=== PATIENT | male | born 1955 | race African-American/Black ===

== ENCOUNTER 2017-05-05 06:08 | Outpatient (CLI) | payer BC ==
[~2017-05-05] VITALS: Ht 182.9 cm; Wt 102.3 kg
--- NOTE | ~2017-05-05 | HEMODYNAMI ---
PATIENT:MARIAM FREEMAN MEDICAL RECORD: [id number] : 55 LOCATION:[facility] ADMISSION DATE: 05/05/17 Generatedon:05/05/201710:24 Patient name: MARIAM FREEMAN Patient #: [id number] SSN: : 1955 Date of study: 05/05/2017 Page: Of Hemodynamic Procedure Report Patient Data Patient Demographics Procedure consent was obtained First Name: MARIAM Gender: Male Last Name: LYDIA : 1955 Patient #: [id number] Age: 61 year(s) Race: Black Additional ID: [id number] Contact details Address: [address] [place] [address] State: [place] City: [place] Zip code: [address] Admission Admission Data Admission Date: 05/05/2017 Admission Time: 6:08 Procedure Procedure Types Cath Procedure Peripheral Cath Diagnostic Procedure Miscellaneous Procedure Description Procedure Date Procedure Date: 05/05/2017 Procedure Start Time: 9:05 Procedure Staff Name Function Chris Miner MD Performing Physician Deidra Pimentel RT Scrub Hayley Molina RN Nurse Shant Jc RT Monitor Procedure Data Cath Procedure Fluoroscopy Diagnostic fluoroscopy Total fluoroscopy Time: 24 time: 24 min min Diagnostic fluoroscopy Total fluoroscopy dose: 278 dose: 278 mGy mGy Contrast Material Contrast Material Type Amount (ml) Isovue 300 91 Entry Location Entry Primary Successful Side Size Upsize 1 Upsize Entry Closure Alfonso ccessful Closure Location (Fr) (Fr) 2 (Fr) Remarks Device Remarks Femoral Right 5 Fr 6 Fr Exoseal artery Mid-Length Diagnostic catheters Device Type Used For End Catheter Placement Merit ULTRA BOLUS FLUSH 5Fr 65CM catheter Procedure Medications Medication Administration Route Dosage Heparin Bolus I.V. 5000 units Fentanyl I.V. 100 mcg Hemodynamics Rest Heart Rate: 60 (bpm) Snapshots Pre Cath Intra NCS Post Cath Vital Signs Time Heart Resp SPO2 NIBP (mmHg) Rhythm Pain Sedation Rate (ipm) (%) Status Level (bpm) 8:46:03 70 21 100 175/83(138) NSR 0 (11) 10(A) , No pain 8:50:27 68 22 100 159/85(132) NSR 0 (11) 10(A) , No pain 8:54:51 63 20 100 161/84(127) NSR 0 (11) 10(A) , No pain 8:59:17 64 21 100 160/83(139) NSR 0 (11) 10(A) , No pain 9:03:44 64 22 100 166/78(127) NSR 0 (11) 10(A) , No pain 9:08:10 69 27 100 163/82(136) NSR 0 (11) 10(A) , No pain 9:12:32 74 21 100 160/84(124) NSR 0 (11) 10(A) , No pain 9:16:59 66 24 100 157/83(135) NSR 0 (11) 10(A) , No pain 9:21:23 69 18 100 160/87(140) NSR 0 (11) 10(A) , No pain 9:25:49 69 22 100 155/79(132) NSR 0 (11) 10(A) , No pain 9:30:13 71 22 100 163/81(127) NSR 0 (11) 10(A) , No pain 9:34:35 68 21 100 160/88(138) NSR 0 (11) 10(A) , No pain 9:39:00 68 21 100 167/84(131) NSR 0 (11) 10(A) , No pain 9:43:28 69 21 100 171/84(137) NSR 0 (11) 10(A) , No pain 9:47:56 73 22 100 168/81(135) NSR 0 (11) 10(A) , No pain 9:52:25 70 22 100 163/84(128) NSR 0 (11) 10(A) , No pain 9:56:49 70 20 100 170/89(135) NSR 0 (11) 10(A) , No pain 10:01:17 66 21 100 173/85(131) NSR 0 (11) 10(A) , No pain 10:05:41 65 15 100 172/87(123) NSR 0 (11) 10(A) , No pain 10:10:02 72 20 99 162/91(133) NSR 0 (11) 10(A) , No pain 10:14:24 72 17 100 168/87(140) NSR 0 (11) 10(A) , No pain 10:18:48 72 18 99 163/88(128) NSR 0 (11) 10(A) , No pain 10:23:12 82 21 100 171/96(135) NSR 0 (11) 10(A) , No pain Medications Time Medication Route Dose Verified Delivered Reason Notes Effe ctiveness by by 9:29:45 Heparin I.V. 5000 Hayley Hayley for Bolus units Tracy Molina anticoagulation RN RN 10:13:52 Fentanyl I.V. 100 Hayley Hayley mcg Tracy Molina RN strip polisher Log Time Note 8:30:00 Time tracking: Regular hours 8:30:15 Plan of Care:Hemodynamics will remain stable., Cardiac rhythm will remain stable., Comfort level will be maintained., Respiratory function will remain adequate., Patient/ family verbilizes understanding of procedure., Procedure tolerated without complication., Recovers from procedure without complications.. 8:30:23 Patient received from Outpatients to IR Alert and oriented. Tansferred to table in Supine position. 8:30:24 Correct patient and procedure confirmed by team. 8:30:27 Signed procedure consent form obtained from patient. 8:30:28 ECG and BP/O2 sat monitors applied to patient. 8:30:31 Full Disclosure recording started 8:30:32 - 8:30:41 H&P Date Dictated: 05/05/2017 H&P Addendum completed by physician on day of procedure. (MUST COMPLETE FOR ALL OUTPATIENTS). 8:30:42 Pre-procedure instructions explained to patient. 8:30:43 Pre-op teaching completed and patient verbalized understanding. 8:30:51 Family in waiting room. 8:30:53 Patient NPO since Midnight. 8:30:57 Is the patient allergic to Iodine/contrast media? No. 8:31:04 Is patient on blood thinner?Yes 8:31:13 Patient diabetic? Yes. 8:31:16 If diabetic: On Metformin? Yes 8:31:27 If on Metformin: Last Dose? 05/03/2017 8:31:31 - 8:31:32 ----Pre-sedation anethsthesia assessment.---- 8:31:39 Previous problem with sedation/anesthesia? No ? 8:31:41 Snore? Yes 8:31:43 Sleep apnea? No 8:31:44 Deviated septum? No 8:31:45 Opens mouth fully? Yes 8:31:46 Sticks out tongue? Yes 8:31:49 Airway obstruction? No ? 8:32:13 Dentures? No ? 8:32:18 Pre procedure: right dorsailis pedis pulse Doppler 8:32:23 Pre procedure: left dorsailis pedis pulse Inaccessible 8:32:26 Pre procedure: right posterior tibial pulse Doppler 8:32:29 Pre procedure: left posterior tibial pulse Inaccessible 8:32:37 Patient pain scale 0/10 no pain. 8:32:51 Use device set IR Diagnostic 8:32:54 Acist Syringe opened to sterile field. 8:32:54 Acist Hand Control opened to sterile field. 8:32:55 Acist Manifold opened to sterile field. 8:32:55 Bag Decanter opened to sterile field. 8:32:56 Sterile Angiographic Pack opened to sterile field. 8:44:33 IV patent on arrival in left wrist with 0.9% NaCl at [facility]. 8:44:34 Sharps counted by scrub and verified by R.N. 8:44:34 Alarms reviewed by R. N. 8:44:38 Bilateral groins area was prepped with chlora-prep and draped in steril e fashion 8:44:42 Vital chart was started 8:44:43 Baseline sample Acquired. 8:44:45 Rhythm: sinus rhythm 9:03:09 Physician arrived 9:03:10 --------ALL STOP TIME OUT------ 9:03:10 Final Timeout: patient, procedure, and site verified with staff and physician. All members of the team are in agreement. 9:03:12 Bilateral groins site verified by team. 9:03:16 Physical assessment completed. ASA score P 3- A patient with mild systemic disease as per Chris Miner MD. 9:03:21 Sedation plan: IV Moderate Sedation Versed, Fentanyl 9:05:03 Procedure started. 9:05:33 Local anesthetic to left femerol artery with Lidocaine 1% by Chris Miner MD.INITIAL ACCESS ONLY 9:05:43 A 5 Fr sheath was inserted into the Right Femoral artery 9:05:48 Terumo 5Fr [place] Sheath opened to sterile field. 9:05:49 Micropuncture VSI 4FR kit opened to sterile field. 9:05:50 TUBING, CONTRAST INJCTN HI PRES opened to sterile field. 9:05:51 Cook DOC .035 guide wire opened to sterile field. 9:05:51 SMT [employer] SAN 260 guide wire opened to sterile field. 9:06:05 BasixTOUCH Inflation Syringe opened to sterile field. 9:06:08 A [place] ULTRA BOLUS FLUSH 5Fr 65CM catheter was advanced over the wire and used for . 9:13:18 Terumo ANGLE 260cm glide wire opened to sterile field. 9:13:26 Terumo TORQUE DEVICE PLASTIC .038 opened to sterile field. 9:13:42 Terumo 5FR ANGLED 65CM glide catheter opened to sterile field. 9:19:07 Sheath upsized to a 6 Fr Mid-Length. 9:19:19 Terumo 6Fr [place] Destination Sheath opened to sterile field. 9:22:01 CXI SUPPORT .035 135 CM STR catheter opened to sterile field. 9:27:04 BasixTOUCH Inflation Syringe opened to sterile field. 9:29:45 Heparin Bolus 5000 units I.V. was administered by Hayley Molina RN; for anticoagulation; 9:32:12 [address] 260 .035 glide wire opened to sterile field. 9:39:55 Trailblazer 0.035 catheter opened to sterile field. 9:55:53 Procedure and supply charges have been captured, reviewed, submitted an d are correct. 10:09:19 Terumo 6Fr [place] Sheath opened to sterile field. 10:09:42 Cordis 6Fr Exoseal opened to sterile field. 10:10:00 Sheath removed intact; hemostasis achieved with Exoseal to the Right Femoral artery. 10:10:02 Procedure ended.(Physican Out) 10:11:08 Fluoroscopy time 24.00 minutes. 10:11:13 Flurop Dose total: 278 10:11:13 Fluoroscopy dose: 278 mGy 10:11:23 Contrast amount:Isovue 300 91ml. 10:11:25 Sharps counted by scrub and verified by R.N. 10:11:26 Insertion/operative site no bleeding no hematoma. 10:11:31 Post-op/insertion site Left Femoral artery dressed using a 4 x 4 and Tegaderm. 10:11:36 Post left femerol artery:stable 10:11:39 Post Procedure Pulses reassessed and unchanged 10:12:10 Post-procedure physical assessment completed. ASA score P 3 - A patient with severe systemic disease as per Chris Miner MD. 10:13:51 Post procedure instruction explained to patient.Patient verbalizes understanding. 10:13:52 Fentanyl 100 mcg I.V. was administered by Hayley Molina RN; ; 10:22:56 Report given to Outpatients. 10:22:59 Patient transfered to Outpatients with Bed. 10:24:04 Vital chart was stopped Device Usage Item Name Manufacture Quantity Catalog Number Hospital Part Current Min imal Lot# / Charge Number Stock Stock Serial# Code Acist Syringe Acist 1 28827 276781 284121 169450 20 [employer] Inc Acist Hand Acist 1 93483 100850 120534 160150 5 Control Medical Systems Inc Acist Acist 1 14791 014858 637340 808124 5 Manifold Medical Systems Inc Bag Decanter Microtek 1 2002S 403262 46295 536207 5 Medical Inc. Sterile Cardinal 1 [id number] 601552 399041 5 Angiographic Health Pack Terumo 5Fr Terumo 1 [id number] 089773 606793 940657 40 [place] Sheath Micropuncture VSI VASCULAR 1 7266V 585781 780242 5 VSI 4FR kit SOLUTIONS TUBING, Merit 1 [id number] 686267 564609 426069 5 CONTRAST Medical INJCTN HI PRES Cook DOC .035 Cook Medical 1 [id number] 462677 595601 5 guide wire Cook SAN [place] [employer] 1 M20658 765973 342145 5 [id number] 260 guide wire BasixTOUCH Merit 2 PO5805 649958 540266 724676 5 Inflation Medical Syringe Merit ULTRA Merit 1 [id number] 213177 119692 5 BOLUS FLUSH Medical 5Fr 65CM catheter Terumo ANGLE Terumo 1 [id number] 771859 785438 023015 5 260cm glide wire Terumo TORQUE [place] 1 TD01 740444 076023 005950 5 DEVICE Scientific PLASTIC .038 Terumo 5FR Terumo 1 CG507 842392 896839 5 ANGLED 65CM glide catheter Terumo 6Fr Terumo 1 RSR01 829289 02259 650289 5 [place] Destination Sheath CXI SUPPORT [facility] 1 G22958 560831 898328 5 .035 135 CM STR catheter Cook [facility] 1 L98618 379499 568644 [id number] 260 .035 glide wire Trailblazer Med[employer]onic 1 ASC-035-135 235019 76629 182240 5 0.035 catheter Terumo 6Fr Terumo 1 DIW427 843895 490272 874352 40 [place] Sheath Cordis 6Fr Cardinal 1 EX600 620873 874603 319591 10 [id number] [employer] [facility] Signature Audit [place] Stage Time Signature Unsigned Intra-Procedure 05/05/2017 Shant 10:24:01 AM Babita RT (R) (CV) Signatures Monitor : Shant Signature : Babita RT Date : Time : [facility] [address] [place] [place] [address]
[2017-05-05 06:49] VITALS: BP 175/82; Ht 182.9 cm; Wt 102.3 kg
[2017-05-05] MEDS ORDERED: PLAVIX75 MG PO (06:53)
[2017-05-05] MEDS ORDERED: BAYER CHEWABLE81 MG PO (06:53)
[2017-05-05] MEDS ORDERED: METFORMIN HCL500 M1 PO (06:54)
[2017-05-05] MEDS ORDERED: COREG 3.1253.125 MG PO (06:54)
[2017-05-05 07:24] LABS: BASOPHILS 0.2 % (0-2); EOSINOPHILS 1.5 % (0-7); HEMATOCRIT 32.2 % (42.0-54.0); HEMOGLOBIN 11.1 g/dL (13.5-17.5); IMMATURE GRANULOCYTES 0.2 % (0-5); LYMPHOCYTES 21.6 % (15-50); MCH 29.4 pg (26.0-34.0); MCHC 34.5 g/dL (31.0-37.0); MCV 85.4 fL (80.0-100.0); MEAN PLATELET VOLUME 10.8 fL (7.4-10.4); MONOCYTES 9.6 % (2-11); NEUTROPHILS 66.9 % (40-80); PLATELET COUNT 248 10x3/uL (130-400); RBC 3.77 10x6/uL (4.20-6.10); RDW 14.7 % (11.5-14.5); WBC 10.2 10x3/uL (4.8-10.8)
[2017-05-05 07:36] LABS: APTT 31.1 SECONDS (22.8-39.4); INR 1.13 (0.85-1.17); PROTIME 14.4 SECONDS (11.6-15.0)
[2017-05-05 07:37] LABS: CALC OSMOLALITY 279 mosm/kg (275-300); CALCIUM 8.6 mg/dL (8.5-10.1); CARBON DIOXIDE 27.7 mmol/L (21.0-32.0); CHLORIDE - SERUM 103 mmol/L (98-107); CREATININE - SERUM 0.9 mg/dL (0.6-1.3); GLUCOSE 181 mg/dL (74-106); POTASSIUM - SERUM 4.1 mmol/L (3.5-5.1); SODIUM 138 mmol/L (136-145); UREA NITROGEN 11 mg/dL (7-18); eGFR NON AFRICAN AMERICAN > 90 mL/min (90-120)
--- NOTE | 2017-05-05 15:33 | NUR ---
1350 ROUNDS BY Angy BILLINGS R.N./[facility]. Kd VIERA R.N. 1435 IV DISCONNECTED FROM EXTENSION TUBING. DRESSING TO LEFT GROIN CDI. NO BLEEDING NOTED. NO HEMATOMA PALPATED. PT APPLIED ARTIFICAL LIMB TO LLE. UP AMBULATORY IN ROOM. NO PAIN OR BLEEDING TO LEFT GROIN. DRESSING. Kd VIERA R.N. 1505 AWAKE & ALERT SITTING UP ON SIDE OF BED. GIVEN MED REC., ARTERIOGRAM D/C INSTRUCTIONS-SPECIAL PROCEDURES [facility], & [facility] D/C INSTRUCTIONS. PT VOICED UNDERSTANDING. TO RIVATE CAR PER WHEELCHAIR BY VOLUNTEER. HOME WITH . Kd VIERA R.N.
== END 2017-05-05 15:05 | disposition home or self-care (01) ==
LOC: D.OPS 06:08 → D.RAD 08:00 → D.OPS 08:00
PROVIDERS: Family Medicine
DX: I70.235 Atherosclerosis of native arteries of right leg with ulceration of other part of foot (principal); L97.519 Non-pressure chronic ulcer of other part of right foot with unspecified severity; I70.92 Chronic total occlusion of artery of the extremities; Z72.0 Tobacco use; E11.9 Type 2 diabetes mellitus without complications; Z01.812 Encounter for preprocedural laboratory examination

== ENCOUNTER → 2017-05-07 11:06 | Outpatient (CLI) | payer BC ==
[2017-05-05 06:49] VITALS: BMI 30.6
[~2017-05-07 11:06] MED LIST: BAYER CHEWABLE81 MG PO; COREG 3.1253.125 MG PO; METFORMIN HCL500 M1 PO; PLAVIX75 MG PO
[2017-05-07 12:05] LABS: CALC OSMOLALITY 274 mosm/kg (275-300); CALCIUM 8.6 mg/dL (8.5-10.1); CARBON DIOXIDE 26.2 mmol/L (21.0-32.0); CHLORIDE - SERUM 101 mmol/L (98-107); GLUCOSE 172 mg/dL (74-106); POTASSIUM - SERUM 4.1 mmol/L (3.5-5.1); SODIUM 136 mmol/L (136-145); UREA NITROGEN 11 mg/dL (7-18); eGFR NON AFRICAN AMERICAN 81 mL/min (90-120)
== END | disposition home or self-care (01) ==
LOC: D.LAB 10:30
PROVIDERS: General Practice
DX: N17.9 Acute kidney failure, unspecified (principal)